=== PATIENT | male | born 1990 | race Two or more races ===

== ENCOUNTER 2019-12-08 18:49 | Emergency (ER) | payer SELFPAY ==
[~2019-12-08] VITALS: Ht 182.9 cm; Wt 91.0 kg
[2019-12-08] MEDS ORDERED: TETANUS, DIPHTHERIA, PERTUSSIS VAC/PF 0.5ML (>7YR OLD) IM ONE (20:00)
[2019-12-08] MEDS ORDERED: IBUPROFEN 600MG TABLET PO ONE (20:00)
[2019-12-08] MEDS ORDERED: BACITRACIN ZINC OINT UDPKT TOP ONE (21:00)
[2019-12-08 21:31] VITALS: BP 121/82
== END 2019-12-08 21:34 | disposition home or self-care (01) ==
LOC: ER 18:49
DX: S61.551A Open bite of right wrist, initial encounter (principal); S61.253A Open bite of left middle finger without damage to nail, initial encounter; W54.0XXA Bitten by dog, initial encounter; Y93.89 Activity, other specified; Y92.018 Other place in single-family (private) house as the place of occurrence of the external cause
CPT/HCPCS: 73110; 73130; 90471; 90715; 99283